=== PATIENT | male | born 1935 | race Caucasian/White ===

== ENCOUNTER 2017-09-18 09:46 | Emergency (ER) | payer OTHER ==
[2017-09-18 10:20] LABS: #Eosinphils 0.1 thou/uL (0.0-0.7); #Lymphocytes 1.1 thou/uL (1.20-3.40); #Monocytes 0.7 thou/uL (0.11-0.59); #Neutrophils 4.1 thou/uL (1.40-6.50); %Basophils 0.3 % (0.0-1.0); %Eosinophils 1.1 % (0.0-10.0); %Lymphocytes 18.6 % (21.0-51.0); %Monocytes 11.7 % (0.0-10.0); %Neutrophils 68.3 % (42.0-75.0); Hemoglobin 9.8 g/dL (14.0-18.0); Mean Corpuscular HGB CONC 31.7 g/dL (32.0-36.0); Mean Corpuscular Hemoglobin 29.3 pg (27.0-31.0); Mean Corpuscular Volume 92.4 fl (80.0-94.0); Mean Platelet Volume 8.5 fL (7.4-10.4); Platelet Count 153 thou/uL (130-400); RBC Distribution Width 15.8 % (11.5-14.5); Red Blood Cell (RBC) Count 3.33 mill/uL (4.70-6.10); White Blood Cell (WBC) Count 6.1 thou/uL (4.8-10.8)
[2017-09-18 10:44] LABS: Troponin I 0.076 ng/mL (< 0.028)
[2017-09-18 10:45] LABS: ALT (SGPT) 13 U/L (8-55); AST (SGOT) 16 U/L (5-34); Albumin 3.4 g/dL (3.4-4.8); Alkaline Phosphatase 189 U/L (40-150); Anion Gap 16 mmol/L (10-20); BUN (Urea Nitrogen) 92 mg/dL (8.4-25.7); Bilirubin, Total 1.6 mg/dL (0.2-1.2); Calc. Creatinine Clearance 0 mL/min (70-130); Carbon Dioxide 26 mmol/L (23-31); Chloride 99 mmol/L (98-107); Estimated GFR-MDRD 31; Globulin 3.4 g/dL (2.4-3.5); Glucose 124 mg/dL (83-110); Potassium 3.6 mmol/L (3.5-5.1); Protein, Total 6.8 g/dL (5.8-8.1); Sodium 137 mmol/L (136-145)
--- NOTE | 2017-09-18 11:35 | CT ---
CT HEAD NONCONTRAST DATE: 09/18/17 HISTORY: Fall. Head injury. FINDINGS: There is no evidence of acute intracranial hemorrhage or infarct. The ventricles appear normal in siz e, shape, and position. There is no mass effect or shift of midline structures. Postoperative changes left calvarium. Left mastoid air cells are hypoplastic. Calcification in the arterial structures of the brain base. Mild diffuse cortical atrophy and chronic ischemic small vessel disease. IMPRESSION: Atherosclerosis. Chronic-type findings. No acute traumatic injury is demonstrated. POS: [facility]
[2017-09-18 11:41] LABS: Bilirubin Negative (Negative); Blood, Urine Negative (Negative); Clarity CLEAR (Clear); Glucose, Urine (Dipstick) Negative (Negative); Leukocyte Moderate (Negative); Nitrite Negative (Negative); Protein, Urine (Dipstick) Trace mg/dL (Neg-Trace); Specific Gravity, Urine 1.018 (1.002-1.036); pH, Urine 5.5 (5.0-9.0)
--- NOTE | 2017-09-18 11:41 | CT ---
CT CERVICAL SPINE WITH CORONAL AND SAGITTAL REFORMATIONS: Date: 09/18/17 HISTORY: Trauma, fall, difficulty walking. FINDINGS/IMPRESSION: There is loss of cervical lordosis with mild reversal. Multilevel degenerative changes are present. N o fracture or dislocation is seen. There is minimal anterolisthesis of C4 over C5 vertebral bodies, l ikely due to degenerative changes. POS: [facility]
[2017-09-18 11:43] LABS: Bacteria/HPF None Seen HPF (None Seen); Hyaline Casts/LPF 0-3 HYALINE CAST LPF (0-3 Hyaline); Pathc Cast-AUWi Flag 0.43 (0-2.49); RBC/HPF 0-3 HPF (0-3); Squamous Epithelial 0-3 HPF (0-3)
--- NOTE | 2017-09-18 11:45 | CT ---
CT CHEST NONCONTRAST CT ABDOMEN AND PELVIS NONCONTRAST CT THORACIC SPINE NONCONTRAST CT LUMBAR SPINE NONCONTRAST: Date: 09/18/17 HISTORY: Fall. Abdomen pain. Chest pain. Back pain. FINDINGS: No evidence of pneumothorax. Small amount of left pleural fluid. Subtle patchy infiltrate posterior s egment right upper lobe. Acute nondisplaced fractures lateral aspect right ribs 3 and 4. No evidence of pneumothorax. Old, healing fractures posterior aspect left ribs 4 and 5. Prominent arterial calcification, including the coronary arteries. Hyperdense stone gallbladder lumen. Nonobstructed colon extends through a left lower quadrant anterior abdominal wall defect. Urinary rainer dder incompletely distended. Prostate gland enlarged. Compression of T12 superior end plate results in loss of height by approximately 20%. Significant scl erosis suggests that this is not a hyperacute injury. No significant retropulsion. Degenerative changes throughout the thoracolumbar spine. Bilateral pars interarticular defect at the lumbosacral junction with 10% spondylolisthesis. IMPRESSION: 1. Mild compression T12 superior end plate. Sclerosis suggests that this is a subacute or a chronic injury. No significant retropulsion. 2. 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 3. Nondisplaced right lateral mid rib fractures. No evidence of pneumothorax. 4. Small amount of pleural fluid. 5. Cholelithiasis. 6. Prominent atherosclerosis. 7. Left lower quadrant anterior abdominal wall hernia contains nonobstructed colon. POS: [facility]
== END 2017-09-18 13:29 | disposition home or self-care (01) ==
LOC: ERS 09:46
DX: S22.41XA Multiple fractures of ribs, right side, initial encounter for closed fracture (principal); N39.0 Urinary tract infection, site not specified; K46.9 Unspecified abdominal hernia without obstruction or gangrene; I25.10 Atherosclerotic heart disease of native coronary artery without angina pectoris; I11.0 Hypertensive heart disease with heart failure; I50.9 Heart failure, unspecified; E78.5 Hyperlipidemia, unspecified; Z86.711 Personal history of pulmonary embolism; Z79.899 Other long term (current) drug therapy; Z91.81 History of falling; W19.XXXA Unspecified fall, initial encounter
CPT/HCPCS: 36415; 70450; 71250; 72125; 74177; 80053; 81003; 81015; 82553; 83880; 84484; 85025; 87086; 93005; 96360